=== PATIENT | female | born 1980 | race Two or more races ===

== ENCOUNTER 2019-03-20 10:47 | Emergency (ER) | payer SELFPAY ==
[~2019-03-20] VITALS: Ht 152.4 cm; Wt 70.3 kg
[2019-03-20 10:55] VITALS: BP 145/86
--- NOTE | 2019-03-20 11:33 | RAD ---
RIGHT SHOULDER , 3 VIEWS Clinical Indication: Shoulder pain. Comparison: None. Findings: There is no acute fracture or dislocation. The acromioclavicular and glenohumeral joints are intact. The visualized lung is clear. There is no evidence of a displaced rib fracture. There is no soft tissue abnormality. IMPRESSION: No acute fracture or dislocation. Electronically signed by: Broderick Weber MD (03/20/2019 11:30 AM) [facility]
[2019-03-20] MEDS ORDERED: DICL50TA2 PO (12:03)
[2019-03-20] MEDS ORDERED: GABA300C18 PO (12:03)
[2019-03-20] MEDS ORDERED: CYCL10TA2 PO (12:03)
[2019-03-20] MEDS ORDERED: METH4TAB2 PO (12:03)
--- NOTE | 2019-03-20 12:04 | PHYS DOC ---
Past Medical History Past Medical History: No Pertinent History Past Surgical History: Appendectomy Alcohol Use: None Drug Use: None Adult General Chief Complaint Chief Complaint: SHOULDER INJURY HPI HPI Patient is a 38 year old female, medical history who presents to the ED today complaining of 7 out of 10 right shoulder pain radiating into her right axilla that has been going on for one week. Patient denies any known injury. She states occasionally she develops numbness or tingling to her fingers. Describes the pain as throbbing and intermittent worse whenever she is moving her arm. She is also concerned about mass around the right axilla. 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 Review of Systems Review of Systems Constitutional: Denies fever or chills [] Eyes: Denies change in visual acuity, redness, or eye pain [] HENT: Denies nasal congestion or sore throat [] Respiratory: Denies cough or shortness of breath [] Cardiovascular: No additional information not addressed in HPI [] GI: Denies abdominal pain, nausea, vomiting, bloody stools or diarrhea [] : Denies dysuria or hematuria [] Musculoskeletal: Reports right shoulder pain Integument: Denies rash or skin lesions [] Neurologic: Denies headache, focal weakness or sensory changes [] All other systems were reviewed and found to be within normal limits, except as documented in this note. Allergies Allergies Allergies Coded Allergies Type Severity Reaction Last Updated Verified No Known Drug Allergies 03/20/19 No Physical Exam Physical Exam Constitutional: Well developed, well nourished, no acute distress, non-toxic appearance. [] HENT: Normocephalic, atraumatic, bilateral external ears normal, oropharynx moist, no oral exudates, nose normal. [] Eyes: PERRLA, EOMI, conjunctiva normal, no discharge. [] Neck: Normal range of motion, no tenderness, supple, no stridor. [] Cardiovascular:Heart rate regular rhythm, no murmur [] Lungs & Thorax: Bilateral breath sounds clear to auscultation [] Abdomen: Bowel sounds normal, soft, no tenderness, no masses, no pulsatile masses. [] Skin: Warm, dry, no erythema, no rash. [] Back: No tenderness, no CVA tenderness. [] Extremities: Right shoulder with no obvious deformity. She does noted to have fat around the scapular no signs of infection to this region. Full range of motion to the right shoulder. Adequate radial, medial, ulnar sensation to the right upper extremity. +2 right radial pulse. Cap refill less than 2 seconds the right fingers. Neurologic: Alert and oriented X 3, normal motor function, normal sensory function, no focal deficits noted. [] Psychologic: Affect normal, judgement normal, mood normal. [] Current Patient Data Vital Signs Vital Signs Date Time Temp Pulse Resp B/P (MAP) Pulse Ox O2 Delivery O2 Flow Rate FiO2 03/20/19 10:55 97.9 70 15 145/86 (105) 98 Room Air 97.9 EKG EKG [] Radiology/Procedures Radiology/Procedures []PROCEDURE: SHOULDER 2+V RIGHT RIGHT SHOULDER , 3 VIEWS Clinical Indication: Shoulder pain. Comparison: None. Findings: There is no acute fracture or dislocation. The acromioclavicular and glenohumeral joints are intact. The visualized lung is clear. There is no evidence of a displaced rib fracture. There is no soft tissue abnormality. IMPRESSION: No acute fracture or dislocation. Electronically signed by: Broderick Murillo MD (03/20/2019 11:30 AM) [facility] DICTATED and SIGNED BY: BRODERICK MURILLO MD DATE: 03/20/19 1130 Course & Med Decision Making Course & Med Decision Making Pertinent Labs and Imaging studies reviewed. (See chart for details) This is a 38-year-old. Patient presented to the ED today with right shoulder pain. Right shoulder x-rays interpreted by radiologist were negative for any acute findings. Also complaining of what sounds like radicular symptoms to the right upper extremity. Was discharged with Gabapentin, cyclobenzaprine, Medrol Dosepak and diclofenac. Follow-up with orthopedic doctor in 1-2 weeks. Dragon Disclaimer Dragon Disclaimer This electronic medical record was generated, in whole or in part, using a voice recognition dictation system. Departure Departure Impression: Primary Impression: Radiculopathy of arm Additional Impression: Right shoulder pain Disposition: 01 HOME, SELF-CARE Condition: STABLE Referrals: WENDY BAJWA MD follow up in one week Patient Instructions: Cervical Radiculopathy, [id number], Shoulder Pain, [id number] Additional Instructions: You were elevated in the emergency room for shoulder pain, your right shoulder x-rays are negative for any acute findings. You were noted to have what we call radicular pain/pinched nerve syndrome. We put you on medications, take them as prescribed and follow up with the provided doctor or your own doctor in one to 2 weeks. Scripts Methylprednisolone (MEDROL) 4 Mg Tab.ds.pk 1 PKG PO UD, #1 PKG Prov: AMINA NOLAN APRN 03/20/19 Diclofenac Potassium (DICLOFENAC POTASSIUM) 50 Mg Tablet 1 TAB PO BID, #20 TAB 0 Refills Prov: AMINA NOLAN APRN 03/20/19 Cyclobenzaprine Hcl (CYCLOBENZAPRINE HCL) 10 Mg Tablet 1 TAB PO TID, #30 TAB Prov: AMINA NOLAN APRN 03/20/19 Gabapentin (GABAPENTIN ) 300 Mg Capsule 300 MG PO TID for NEUROGENIC PAIN, #30 CAP Prov: AMINA NOLAN APRN 03/20/19 Problem Qualifiers Additional Impression: Right shoulder pain Chronicity: acute Qualified Codes: M25.511 - Pain in right shoulder AMINA NOLAN APRN Mar 20, 2019 12:03
== END 2019-03-20 12:05 | disposition home or self-care (01) ==
LOC: ER 10:47
DX: M25.511 Pain in right shoulder (principal); M54.12 Radiculopathy, cervical region; Z90.89 Acquired absence of other organs
CPT/HCPCS: 73030; 99284